=== PATIENT | male | born 1950 | race Caucasian/White ===

== ENCOUNTER → 2017-05-24 | Outpatient (CLI) | payer MEDICARE, OTHER ==
[2017-05-24 10:43] VITALS: BP 140/92
[2017-05-24 10:44] VITALS: BP 160/95
--- NOTE | 2017-05-25 10:45 | RADIOLOGY REPORT PS360 ---
CT CHEST W/O CONTRAST HISTORY: INTERSTITIAL LUNG DISEASE ORDERING PHYSICIAN: JOLANTA CHOW MD PATIENT AGE: 66 years TECHNIQUE: Axial images obtained without contrast. Sagittal, and coronal reformatted images are generated and reviewed. COMPARISON: None FINDINGS: There are few scattered small lymph nodes in the mediastinum and sharon. No enlarged mediastinal or hilar lymph nodes. No mediastinal or hilar mass. Coronary artery calcifications are present. Normal heart size. No pericardial effusion. Centrilobular emphysematous changes are noted with hyperinflation and bronchial thickening. There is diffuse pulmonary fibrosis with mild honeycombing in the lung bases and upper lobes peripherally. No lobar consolidation or collapse. No suspicious pulmonary nodules. No effusions. There is some minimal traction bronchiectasis in the lung bases posteriorly Upper abdominal images show diffuse hepatic steatosis. IMPRESSION: Emphysema with diffuse pulmonary fibrosis which involves mainly the periphery of the upper lobes and the lung bases with some mild honeycombing and mild bronchiectasis in the lung bases posteriorly.
== END ==
LOC: RT 09:31
DX: J84.9 Interstitial pulmonary disease, unspecified (principal)